=== PATIENT | male | born 1960 | race Caucasian/White ===

== ENCOUNTER → 2017-04-21 | Outpatient (CLI) | payer OTHER ==
[~2017-04-21] MED LIST: ALBINS/ INH; ALBU0.08 INH; ALBU1AER9 INH; ALBUAER19 INH; ASPI81TA28 PO; FLUT1INH7 INH; GABA-112 PO; IBUP-1450 PO; LISI-729 PO; NITR0.4S UT; PANT40TA PO; PRVHFAIN INH; TRAM-10 PO
--- NOTE | 2017-04-21 15:22 | DIAGNOSTIC IMAGING REPORT ---
C-SPINE ROUTINE 4 OR 5 VIEWS CLINICAL HISTORY: Cervicalgia. Left shoulder pain. COMPARISON STUDY: PET/CT May 26, 2014. FINDINGS: C7 is slightly obscured on this exam. Alignment of the cervical spine is anatomic. Vertebral body heights are maintained. There is no fracture or suspicious lesion within visualized portions of the cervical spine. There is moderate disc space narrowing at C5-C6 and C6-C7. There is mild multilevel facet arthrosis with multilevel bony neural foraminal narrowing. IMPRESSION: 1. Partial obscuration of C7. No fracture within visualized portions of the cervical spine. 2. Moderate disc space narrowing at C5-C6 and C6-C7 with mild multilevel facet arthrosis. Electronically signed by: Andrez Ashby M.D. 04/21/2017 3:21 PM Dictated Date/Time: 04/21/2017 3:19 PM
--- NOTE | 2017-04-21 15:23 | DIAGNOSTIC IMAGING REPORT ---
L SHOULDER MIN 2 VIEWS ROUTINE CLINICAL HISTORY: PAIN SHOULDER pain COMPARISON: None. DISCUSSION: Moderate degenerative change left glenohumeral joint. Moderate osteophytic change lateral aspect humeral head. Moderate degenerative change acromioclavicular joint. No well-defined acute bony abnormality. No abnormal depressed reaction. No abnormal soft tissue calcification. There is no evidence for soft tissue swelling. IMPRESSION: Moderate degenerative change. No acute bony abnormality. The above report was generated using voice recognition software. It may contain grammatical, syntax or spelling errors. Electronically signed by: Sridhar Verde M.D. 04/21/2017 3:22 PM Dictated Date/Time: 04/21/2017 3:20 PM
== END | disposition home or self-care (01) ==
LOC: C.RADBC 14:51
PROVIDERS: ATTEND Physician Assistant
DX: M48.02 Spinal stenosis, cervical region (principal); M47.812 Spondylosis without myelopathy or radiculopathy, cervical region; M19.012 Primary osteoarthritis, left shoulder

== ENCOUNTER → 2017-06-02 | Day surgery (SDC) | payer OTHER ==
[2017-05-28 15:23] VITALS: BMI 19.0
--- NOTE | 2017-06-01 18:58 | Procedure Note ---
Procedure Note Date of Service Jun 01, 2017. Procedure Note 57-year-old male here for evaluation of mediastinal adenopathy is also notably a right lower lobe possibly pleural based/major fissure nodule: Patient is currently having weight loss of unknown etiology and has a chronic smoker with mediastinal adenopathy seen via CT scans. Patient's PET-CT imaging showed no signs of significant SUV uptake. On his last visit the patient did note he was getting over the flu and denies any active pulmonary signs or symptoms. But due to the weight loss in the notable adenopathy we have decided to move forward with EBUS bronchoscopy. Active Problems 1. Abnormal weight loss (R63.4) 2. Chest pain (R07.9) 3. Chronic obstructive pulmonary disease (FEV1: 87%) 4. Hypertension (I10) 5. LAD (lymphadenopathy), mediastinal (R59.0) 6. Low back pain potentially associated with radiculopathy (M54.5) 7. Myalgia and myositis 8. Pulmonary emphysema (J43.9) 9. Pulmonary nodule (R91.1) Surgical History 1. History of Oral Surgery Tooth Extraction Family History 1. Family history of fibromyalgia (Z82.69) 2. Family history of degenerative disc disease (Z82.69) Social History Current every day smoker (F17.200) No alcohol use Occasionally uses seat belt Current Meds 1. Nitroglycerin 0.4 MG Sublingual Tablet Sublingual; PLACE 1 TABLET UNDER THE 2. ProAir HFA 108 (90 Base) MCG/ACT Inhalation Aerosol Solution; INAHLE 2 PUFFS 3. Lisinopril 5 MG Oral Tablet; 4. Protonix 40 MG Oral Tablet Delayed Release; TAKE ONE TABLET BY MOUTH 2 TIMES A 5. Gabapentin 100 MG Oral Capsule; TAKE 1 CAPSULE 3 TIMES DAILY; 6. TraMADol HCl - 50 MG Oral Tablet; take 1 tablet by mouth every 4 to 6 hours if needed for 7. Breo Ellipta 100-25 MCG/INH Inhalation Aerosol Powder Breath Activated; INHALE 1 8. Albuterol Sulfate (2.5 MG/3ML) 0.083% Inhalation Nebulization Solution; USE 1 UNIT 9. Ibuprofen 600 MG Oral Tablet; TAKE 1 TABLET 3 TIMES DAILY WITH FOOD NEEDED; Allergies 1. No Known Drug Allergies Immunizations Influenza --- Series1: -Jan-2017 Vitals Vital Signs Recorded: 04May2017 02:18PM Height: 5 ft 6 in Weight: 128 lb 4 oz BMI Calculated: 20.7 BSA Calculated: 1.66 Respiration: 20 Temperature: 97.8 F Blood Pressure: 134 / 82, RUE, Sitting O2 Saturation: 99, RA Heart Rate: 90 Physical Exam Constitutional General appearance: No acute distress, well appearing and well nourished. Well- nourished, well-developed white male. No acute distress. He is alert and oriented 3. Mood is good. Affect is good. Eyes Conjunctiva and lids: No swelling, erythema, or discharge. Pupils and irises: Equal, round and reactive to light. Ears, Nose, Mouth, and Throat External inspection of ears and nose: Normal. Oropharynx: Normal with no erythema, edema, exudate or lesions. Pulmonary Respiratory effort: No increased work of breathing or signs of respiratory distress. Auscultation of lungs: Abnormal. Decreased breath sounds bilaterally. He does have expiratory wheezes bilaterally. No rale or rhonchi noted. Cardiovascular Palpation of heart: Normal PMI, no thrills. Auscultation of heart: Normal rate and rhythm, normal S1 and S2, without murmurs. Examination of extremities for edema and/or varicosities: Normal. Abdomen Abdomen: Non-tender, no masses. Liver and spleen: No hepatomegaly or splenomegaly. Lymphatic Palpation of lymph nodes in neck: No lymphadenopathy. Neurologic Cranial nerves: Cranial nerves 2-12 intact. Reflexes: 2+ and symmetric. Sensation: No sensory loss. Psychiatric Orientation to person, place and time: Normal. Mood and affect: Normal.
[~2017-06-02] VITALS: Ht 167.6 cm; Wt 55.5 kg
[~2017-06-02] MED LIST changes: -ALBU0.08 INH; -ALBU1AER9 INH; -ALBUAER19 INH; +ATROPINE SULFATE 0.1 MG/ML 5ML SYR IV PRN; +DEXAMETHASONE SOD INJ 4 MG/ML VIAL ONE; +FENTANYL CITRATE INJ 50 MCG/1 ML 2 ML VIAL IV PRN; +FENTANYL CITRATE INJ 50 MCG/1 ML 2 ML VIAL ONE; -GABA-112 PO; +GLYCOPYRROLATE INJ 0.2 MG/ML VIAL ONE; +LACTATED RINGER'S 1000ML 1,000 ML IV SCH; +LIDOCAINE HCL 2% 2 ML VIAL (20MG/ML) ONE; +MIDAZOLAM HCL 1 MG/ML 2ML VIAL ONE; +NEOSTIGMINE METHYLSULFATE 1 MG/ML 10ML VIAL ONE; +ONDANSETRON INJ 2 MG/ML 2 ML VIAL IV PRN; +ONDANSETRON INJ 2 MG/ML 2 ML VIAL ONE; +PROPOFOL IV EMULSION 10 MG/ML 20 ML VIAL IV ONE; +ROCURONIUM BROMIDE 10 MG/ML 5 ML VIAL IV ONE
--- NOTE | 2017-06-02 07:52 | History & Physical Bridge Note ---
H&P Re-Evaluation Bridge Note: I have examined the patient, reviewed the History & Physical and in the interval since the performance of the History & Physical I have noted the following changes of clinical significance: No changes noted
[2017-06-02 08:01] VITALS: BP 168/98; PULSE 70; TEMP 36.6; O2SAT 100; Ht 167.6 cm; Wt 55.5 kg
--- NOTE | 2017-06-02 10:51 | Discharge Instructions ---
Discharge Instructions Date of Service Jun 02, 2017. Admission Reason for Admission: Lung Nodule, Mediastinal Lymphadenopathy Discharge Discharge Diagnosis / Problem: mediastinal adenopathy with associated unintentional weight loss Discharge Goals Goal(s): Diagnostic testing Activity Recommendations Activity Limitations: resume your previous activity . Current Hospital Diet Patient's current hospital diet: Discharge Diet Recommended Diet: Regular Diet Procedures Procedures Performed: Endobronchial Ultrasound Guided Bronchoscopy, Fine Needle Aspiration, Bronchial Lavage of Right Lower Lobe and Flexible Bronchoscopy Pending Studies Studies pending at discharge: no Medical Emergencies . Who to Call and When: Medical Emergencies: If at any time you feel your situation is an emergency, please call 911 immediately. . Non-Emergent Contact Non-Emergency issues call your: [facility] [employer] . . "Provider Documentation" section prepared by Aubrey Juarez. . VTE Core Measure Inpt VTE Proph given/why not?: Treatment not indicated
--- NOTE | 2017-06-02 10:55 | Bronchoscopy Procedure Note ---
Bronchoscopy Procedure Note Procedure: Flexible-Bronchoscopy, EBUS, FNA, BAL Consent: Obtained through the patient placed into the chart Pre-Procedural Dx: Mediastinal adenopathy Post-Procedural Dx: Mediastinal adenopathy Analgesia: GETA Sedation: GETA Procedure: The Olympus video bronchoscope and EBUS scope were used for this procedure Initially the flexible bronchoscope was used for evaluation of the airways. The ET tube was notably 14 cm above the level of the glen. Trachea: Visualized portion of the trachea was anatomically within normal limits Glen: Anatomically within normal limits Right bronchial tree: Right mainstem bronchus: Anatomically within normal limits Right upper lobe: Anatomically within normal limits Bronchus intermedius: Anatomically within normal limits Right middle lobe: Anatomically within normal limits Right lower lobe: Anatomically within normal limits Findings: No significant findings noted Left bronchial tree: Left mainstem bronchus: Anatomically within normal limits Left upper lobe: Anatomically within normal limits Lingula: Anatomically within normal limits Left lower lobe: Anatomically within normal limits Findings: No significant findings noted EBUS/SHARON: FNA Ann Stations: 7: # of passes 3 4R: # of passes 5 4L: # of passes 5 11R: # passes 3 11L: # passes 4 BAL: Right lower lobe EBL: 2 cc Complications: None Follow-up: PACU
[2017-06-02 11:45] VITALS: BP 125/81; PULSE 72; TEMP 36.4; O2SAT 99
[2017-06-02 12:14] VITALS: BP 145/76; PULSE 72; O2SAT 96
[2017-06-02 12:47] VITALS: BP 140/75; PULSE 65; TEMP 36.5; O2SAT 99
--- NOTE | 2017-06-02 13:16 | Anesthesiology Progress Note ---
Anesthesia Post Op Note Date & Time Jun 02, 2017 at 13:15 Vital Signs Pain Intensity: 0 Vital Signs Past 12 Hours Date Time Temp Pulse Resp B/P (MAP) Pulse Ox O2 Delivery O2 Flow Rate FiO2 06/02/17 12:47 36.5 65 18 140/75 99 Room Air 06/02/17 12:14 72 18 145/76 96 Room Air 06/02/17 11:45 36.4 72 16 125/81 99 Room Air 06/02/17 11:30 36.7 68 17 139/80 98 Room Air 06/02/17 11:20 62 17 144/75 100 Oxymask 2 06/02/17 11:10 67 13 141/82 100 Oxymask 6 06/02/17 11:01 36.3 71 16 146/78 99 Oxymask 10 06/02/17 08:01 36.6 70 20 168/98 (121) 100 Room Air Notes Mental Status: alert / awake / arousable, participated in evaluation Pt Amnestic to Procedure: Yes Nausea / Vomiting: adequately controlled Pain: adequately controlled Airway Patency, RR, SpO2: stable & adequate BP & HR: stable & adequate Hydration State: stable & adequate Anesthetic Complications: no major complications apparent
== END | disposition home or self-care (01) ==
LOC: C.ACU 07:13
PROVIDERS: ATTEND Internal Medicine Critical Care Medicine
DX: R59.0 Localized enlarged lymph nodes (principal); R91.1 Solitary pulmonary nodule; J44.9 Chronic obstructive pulmonary disease, unspecified; I25.10 Atherosclerotic heart disease of native coronary artery without angina pectoris; I10 Essential (primary) hypertension; K21.9 Gastro-esophageal reflux disease without esophagitis; F17.200 Nicotine dependence, unspecified, uncomplicated; Z82.69 Family history of other diseases of the musculoskeletal system and connective tissue

== ENCOUNTER → 2017-06-15 | Outpatient (CLI) | payer OTHER ==
[~2017-06-15] MED LIST changes: -ATROPINE SULFATE 0.1 MG/ML 5ML SYR IV PRN; -DEXAMETHASONE SOD INJ 4 MG/ML VIAL ONE; -FENTANYL CITRATE INJ 50 MCG/1 ML 2 ML VIAL IV PRN; -FENTANYL CITRATE INJ 50 MCG/1 ML 2 ML VIAL ONE; -GLYCOPYRROLATE INJ 0.2 MG/ML VIAL ONE; -LACTATED RINGER'S 1000ML 1,000 ML IV SCH; -LIDOCAINE HCL 2% 2 ML VIAL (20MG/ML) ONE; -MIDAZOLAM HCL 1 MG/ML 2ML VIAL ONE; -NEOSTIGMINE METHYLSULFATE 1 MG/ML 10ML VIAL ONE; -ONDANSETRON INJ 2 MG/ML 2 ML VIAL IV PRN; -ONDANSETRON INJ 2 MG/ML 2 ML VIAL ONE; -PROPOFOL IV EMULSION 10 MG/ML 20 ML VIAL IV ONE; -ROCURONIUM BROMIDE 10 MG/ML 5 ML VIAL IV ONE
--- NOTE | 2017-06-15 16:49 | DIAGNOSTIC IMAGING REPORT ---
CERVICAL SPINE MRI HISTORY: CERVICAL PAIN TECHNIQUE: Multiplanar multisequence MRI of the cervical spine was performed without the use of contrast. COMPARISON STUDY: Cervical spine 04/21/2017. FINDINGS: Alignment and curvature intact. No fractures within the cervical spine. Prevertebral soft tissues and the C1-C2 interval are maintained. The visualized posterior fossa demonstrates a small focus of increased T2 signal within the central hannah. This could be due to microvascular ischemic change or an old lacunar infarct. Mild to moderate disc space narrowing at C5-C6 and C6-C7. Mild disc space narrowing at C4-C5. The cervical spinal cord is normal in course, caliber, and signal intensity. C2-C3: No significant central canal or neural foraminal narrowing. C3-C4: Broad-based posterior disc osteophyte complex asymmetric to the left with left-sided uncovertebral hypertrophy. This abuts but does not deform the left anterior cord. There is severe left-sided neural foraminal narrowing. Mild right-sided neural foraminal narrowing. C4-C5: Small broad-based posterior disc osteophyte complex without significant central canal narrowing. There is moderate right and severe left neural foraminal narrowing due to the uncovertebral hypertrophy. C5-C6: Broad-based posterior disc bulge which abuts but does not deform the anterior cord. There is severe bilateral neural foraminal narrowing due to the disc bulge and uncovertebral hypertrophy. C6-C7: Broad-based posterior disc bulge which results in partial effacement of the anterior thecal sac without cord deformity. There is severe right and moderate left neural foraminal narrowing due to the uncovertebral hypertrophy. C7-T1: Small broad-based posterior disc bulge without significant central canal or neural foraminal narrowing. IMPRESSION: 1. Multilevel cervical spondylosis as described above most pronounced at the C3-C4 and C5-C6 levels. 2. Multilevel bilateral neural foraminal narrowing as described above. 3. No fracture or subluxation. Electronically signed by: Berhane Villatoro M.D. 06/15/2017 4:48 PM Dictated Date/Time: 06/15/2017 4:41 PM
== END | disposition home or self-care (01) ==
LOC: C.MRIBC 15:13
PROVIDERS: ATTEND Physician Assistant
DX: M54.12 Radiculopathy, cervical region (principal)